=== PATIENT | female | born 1970 | race Caucasian/White ===

== ENCOUNTER 2021-12-06 01:00 | Emergency (ER) | payer MEDICAID ==
[~2021-12-06] VITALS: Ht 154.9 cm; Wt 68.9 kg
[2021-12-06 01:06] VITALS: BP 133/80
--- NOTE | 2021-12-06 01:10 | NUR ---
TO LOBBY FOLLOWING TRIAGE
--- NOTE | 2021-12-06 01:53 | NUR ---
Dr. Yuan examining patient.
[2021-12-06 02:18] LABS: BASOPHILS % (AUTO) 0.3 % (0.0-2.0); EOSINOPHILS # (AUTO) 0.3 K/uL (0-0.4); EOSINOPHILS % (AUTO) 4.3 % (0.0-4.0); HEMATOCRIT 42.4 % (36-48); HEMOGLOBIN 14.6 g/dL (12.0-16.0); LYMPHOCYTES # (AUTO) 2.8 K/uL (2.5-16.5); LYMPHOCYTES % (AUTO) 41.7 % (20.5-51.1); MEAN CORPUSCULAR HEMOGLOBIN 28 pg (27-31); MEAN CORPUSCULAR HGB CONC 34 g/dL (33-37); MEAN CORPUSCULAR VOLUME 81.3 fL (80-94); MONOCYTES # (AUTO) 0.6 K/uL (0.8-1.0); MONOCYTES % (AUTO) 8.3 % (1.7-9.3); NEUTROPHILS % (AUTO) 45.4 % (42.2-75.2); PLATELET COUNT (AUTO) 217 K/uL (140-450); RED BLOOD CELL COUNT(AUTO) 5.22 MIL/uL (4.20-5.40); RED CELL DISTRIBUTION WIDTH 14.1 % (11.6-13.7); WHITE BLOOD COUNT (AUTO) 6.7 K/uL (4.8-10.8)
[2021-12-06 02:39] LABS: ALBUMIN 3.5 g/dL (3.4-5.0); CARBON DIOXIDE 28.6 mmol/L (21-32); CREATININE 0.7 mg/dL (0.6-1.3); POTASSIUM 3.6 mmol/L (3.5-5.1); TOTAL BILIRUBIN 0.4 mg/dL (0.0-1.0)
--- NOTE | 2021-12-06 03:40 | NUR ---
PT BACK FROM CT.
--- NOTE | 2021-12-06 03:59 | NUR ---
51 YO F BIB SELF WITH C/C OF RT EAR DISCOMFORT [id number]. PT HAS GROWTH IN HER RT EAR CANAL. PT STATES SHE FEELS SOMETHING CRAWLING INSIDE OF HER EAR AND SHARP PAIN THAT COMES AND GOES SUDDENLY. PT STATES SHE IS UNABLE TO EAR FROM HER RT EAR. DENIES USING MEDICATION FOR PAIN. HX:DM RX:NONCOMPLIANT NKA
--- NOTE | 2021-12-06 05:02 | NUR ---
PT APPEARS TO BE RESTING WITH EYES CLOSED,OPENS TO SOUND. EQUAL RISE AND FALL OF CHEST WALL. ALL NEEDS MET AT THIS TIME.
--- NOTE | 2021-12-06 07:05 | NUR ---
PT APPEARS TO BE RESTING WITH EYES CLOSED,OPENS TO SOUND. EQUAL RISE AND FALL OF CHEST WALL. ALL NEEDS MET AT THIS TIME.
--- NOTE | 2021-12-06 07:23 | NUR ---
RECEIVED REPORT FROM VIKAS BOND. ASSUMED CARE AT THIS TIME.
--- NOTE | 2021-12-06 09:45 | NUR ---
PATIENT RESTING IN BED WITH EYES CLOSED, ON BEDSIDE FOXER. ALL NEEDS MET AT THIS TIME.
[2021-12-06] MEDS ORDERED: LIDOCAINE MPF 1% 10 MG/ML VIAL INJ ONE (10:40)
[2021-12-06] MEDS ORDERED: NAPR-1704 PO (11:26)
[2021-12-06] MEDS ORDERED: CEPH500C16 PO (11:26)
[2021-12-06 11:42] VITALS: BP 92/52
--- NOTE | 2021-12-06 11:42 | NUR ---
Patient discharged with v/s stable. Written and verbal after care instructions ABOUT INCISION AND DRAINAGE AFTER CARE given and explained. Patient alert, oriented and verbalized understanding of instructions. Ambulatory with steady gait. All questions addressed prior to discharge. ID band removed. Patient advised to follow up with PMD. Rx of KEFLEX AND NAPROSYN given. Patient educated on indication of medication including possible reaction and side effects. Opportunity to ask questions provided and answered.
--- NOTE | 2021-12-06 11:42 | NUR ---
IV removed, catheter intact and site benign. Applied folded 4x4 gauze and tape to stop bleeding.
== END 2021-12-06 11:42 | disposition home or self-care (01) ==
LOC: MED 01:00
DX: H60.91 Unspecified otitis externa, right ear (principal)
CPT/HCPCS: 10060; 36415; 70481; 80053; 85025; 99285; J2001; Q9967